=== PATIENT | female | born 2000 | race Hispanic/Latino ===

== ENCOUNTER 2022-04-08 18:07 | Emergency (ER) | payer SELFPAY ==
[2022-04-08 19:37] LABS: Bilirubin Negative (Negative); Blood, Urine Negative (Negative); Clarity Clear (Clear); Glucose, Urine (Dipstick) Normal (Negative); Ketone, Urine Negative (Negative); Leukocyte Negative Leu/uL (Negative); Nitrite Negative (Negative); Protein, Urine (Dipstick) Negative (Neg-Trace); Specific Gravity, Urine 1.015 (1.002-1.036); Urobilinogen Normal mg/dL (Less than 2); pH, Urine 7.5 (5.0-9.0)
== END 2022-04-08 20:02 | disposition home or self-care (01) ==
LOC: ERS 18:07
DX: O26.892 Other specified pregnancy related conditions, second trimester (principal); R53.1 Weakness; Z3A.16 16 weeks gestation of pregnancy
CPT/HCPCS: 36416; 81003; 87086; 93005